=== PATIENT | male | born 1990 | race Caucasian/White ===

== ENCOUNTER 2021-03-21 08:54 | Emergency (ER) | payer BC, SELFPAY ==
[2021-03-21] VITALS (14 sets, daily range): BP systolic 117–139; BP diastolic 57–71; PULSE 66–95; RESP 18–25; TEMP 36.7–36.9; O2SAT 95–100
--- NOTE | 2021-03-21 09:00 | RT.EKG_ITS ---
APPROVED REPORT Exam: Resting ECG Reason for Exam: chest pain Patient Location: E HR:89 bpm ECG Measurements Heart Rate 89 AXIS MN 141 P 53 QRSd 86 QRS 53 QT 343 T 42 QTc 418 Conclusion Sinus rhythm...normal P axis, V-rate 60- 99 ST elev, probable normal early repol pattern...ST elevation, age<55. Sinus. Normal axis. Peaked T waves anterolateral leads. Early Repol. No STEMI. No old EKG to compare. I have reviewed and interpreted ECG and agree with software generated interpretation.
--- NOTE | 2021-03-21 09:30 | DI.RAD_ITS ---
Exam(s) XR CHEST 2V PA LATERAL EXAM: XR CHEST 2V PA LATERAL CLINICAL HISTORY: lleft chest pain TECHNIQUE: 2D digital imaging was performed of the chest. Two images were obtained. PA and lateral views were obtained. COMPARISON: No exams were available for comparison FINDINGS: MEDIASTINUM: Normal. HEART: Normal. PULMONARY VASCULATURE: Normal. LUNGS: There is an opacity seen in the anterior aspect of the lung on the lateral view suspicious for lingular infiltrate. There is also blunting posteriorly of the left costophrenic angle suggesting a small left pleural effusion. PLEURAL SPACE: No right pleural effusion or pneumothorax. BONE:Within normal limits for the patient's age. OTHER FINDINGS:Normal. IMPRESSION: 1. Left lingular infiltrate. 2. Small left pleural effusion. DATA REPOSITORY: RADIATION DOSE DELIVERED:
[2021-03-21] MEDS: Ketorolac 15 MG/ML VIAL IVP (09:57)
[2021-03-21] MEDS: Orphenadrine 60 MG/2 ML VIAL IVP (09:57)
[2021-03-21 09:59] LABS: Abs Immature Grans 0.03 10^3/uL (0.0-0.06); Absolute Basophil Count 0.03 10^3/uL (0.0-0.2); Absolute Lymphocyte Count 1.38 10^3/uL (1.2-3.4); Absolute Monocyte Count 0.76 10^3/uL (0.1-0.8); Absolute Neutrophil Count 6.98 10^3/uL (1.2-6.7); Basophils % 0.3; Eosinophils % 2.1; HCT 44.2 % (40.0-50.0); HGB 14.4 g/dL (13.5-17.5); Immature Grans % 0.3; Lymphocytes % 14.7; MCH 30.3 pg (27.0-33.0); MCHC 32.6 % (32.0-36.0); MCV 92.9 fL (80-95); Monocytes % 8.1; Neutrophils % 74.5; Nucleated RBC 0 %; Platelet Count 203 10^3/uL (130-400); RBC 4.76 10^6/uL (4.36-5.78); RDW 11.3 % (11.8-14.1); RDW-SD 38.6 fL; WBC 9.38 10^3/uL (4.4-10.8)
--- NOTE | 2021-03-21 10:23 | DI.VRAD_ITS ---
PROCEDURE INFORMATION: Exam: XR Chest Exam date and time: 03/21/2021 9:38 AM Age: 30 years old Clinical indication: Pain; Left-sided TECHNIQUE: Imaging protocol: XR of the chest. Views: 2 views. COMPARISON: No relevant images were readily available for comparison purposes. FINDINGS: Lungs: Clear lungs. Pleural spaces: No sizable pleural effusion. No pneumothorax. Heart/Mediastinum: Cardiomediastinal silhouette is within normal limits. Bones/joints: No acute displaced fracture or dislocation. IMPRESSION: No acute cardiopulmonary process. Dictated and Authenticated by: Bharath Gentile MD. Ordering:RAJNI Jones MD
[2021-03-21 10:33] LABS: ALT 29 U/L (16-63); AST 15 U/L (15-37); Albumin 3.8 g/dL (3.4-5.0); Alkaline Phosphatase 63 U/L (46-116); Anion Gap 7.4 mmol/L (3-11); BUN 15 mg/dL (7-18); Bilirubin, Total 1.1 mg/dL (0.2-1.0); CO2 28.6 mmol/L (21.0-32.0); CREATININE 1.1 mg/dL (0.70-1.30); Calcium 9.2 mg/dL (8.5-10.1); Chloride 102 mmol/L (98-107); Glucose 84 mg/dL (74-106); Potassium 4.1 mmol/L (3.5-5.1); Sodium 138 mmol/L (136-145); Total Protein 7.5 g/dL (6.4-8.2); Troponin I < 50 ng/L (<or=60)
[2021-03-21 10:45] LABS: D-Dimer 803 ng/mlFEU (<500)
--- NOTE | 2021-03-21 11:00 | DI.CT_ITS ---
Exam(s) CT CHEST PE CTA EXAM: CT CHEST PE CTA CLINICAL HISTORY: elevated dimer and left chest pain. TECHNIQUE: Imaging Protocol: Axial CT angiography was performed with multi-slice acquisition and mu lti-planar and/or 3D reconstructions. CONTRAST MATERIAL: Intravenous: Omnipaque 350 Contrast volume:100 mL COMPARISON: CR,XR XR CHEST 2V PA LATERAL from 03/21/2021 FINDINGS: The examination is limited due to patient motion artifact. Tracheobronchial tree: Patent where visualized. Pulmonary parenchyma: There are infiltrates seen in the left lingula and the left lower lobe. No arc hitectural distortion. Pulmonary Arteries: No evidence of filling defect to suggest pulmonary emboli. Evaluation is somewhat compromised, particularly peripherally secondary to the patient motion. Mediastinum and Gita: No dominant adenopathy or fluid collection. The esophagus is unremarkable. Visualized thyroid gland: Unremarkable. Pleura: No pneumothorax. Small left pleural effusion. Heart: The heart is not dilated. No coronary artery calcifications are seen. No pericardial effusion. Aorta: Thoracic aorta non-dilated. No evidence of dissection. Upper abdomen: Unremarkable. Soft tissues: Unremarkable. Bones: Within normal limits for the patient's age. IMPRESSION: 1. No evidence of pulmonary embolism, thoracic aortic dissection or aneurysm. 2. Small left pleural effusion and subjacent atelectasis. 3. Infiltrate in the left lingula suspicious for pneumonia. RADIATION DOSE DELIVERED: 410.15mGy.cm Total DLP DATA REPOSITORY: All CT scans at this facility are submitted to the National Radiology Data Registry (NRDR) Dose Index Registry (DIR) with the [employer] ([employer]). RADIATION OPTIMIZATION: All CT scans at this facility use at least one of these dose optimization te chniques: automated exposure control; mA and/or kV adjustment per patient size (includes targeted exa ms where dose is matched to clinical indication); or iterative reconstruction.
[2021-03-21] MEDS: Lidocaine 5% Patch 1 PATCH TP (11:09)
[2021-03-21] MEDS: Normal Saline Flush 10 ML SYR IVP ×2 (11:48→12:27)
[2021-03-21] MEDS: Omnipaque 350 MG/ML 100 ML BTL IJ (11:48)
--- NOTE | 2021-03-21 12:00 | DI.VRAD_ITS ---
PROCEDURE INFORMATION: Exam: CTA Chest With Contrast Exam date and time: 03/21/2021 11:03 AM Age: 30 years old Clinical indication: Left-sided and other: Elevated dimer and left chest pain TECHNIQUE: Imaging protocol: Computed tomographic angiography of the chest with contrast. 3D rendering (Not supervised by radiologist): MIP and/or 3D reconstructed images were created by the technologist. Contrast material: OMNIPAQUE 350; Contrast volume: 100 ml; Contrast route: INTRAVENOUS (IV); COMPARISON: CR XR CHEST 2V PA LATERAL 03/21/2021 10:18 AM FINDINGS: Pulmonary arteries: Normal caliber main pulmonary artery. No convincing evidence of pulmonary embolus. Aorta: Normal caliber aorta. Thyroid: Unremarkable visualized thyroid. Lungs: Limited evaluation portions of the lung parenchyma secondary to motion. Minimal atelectasis right lower lobe. Consolidative like opacity seen at the left lingula. Image 48 series 4. Pleural spaces: No pneumothorax. Small left-sided pleural effusion with associated left lower lobe atelectasis. Heart: Heart normal size. Lymph nodes: No concerning or suspicous lymphadenopathy. Bones/joints: No acute fracture. Soft tissues: Unremarkable superficial soft tissues. Other findings: Clear central airways. IMPRESSION: 1. Findings concerning for left lingular pneumonia. 2. Small left-sided pleural effusion. Dictated and Authenticated by: Bharath Gentile MD. Ordering:RAJNI Jones MD
--- NOTE | 2021-03-21 12:38 | ED.GENADUL_ITS ---
Discharge Plan Disposition Patient Disposition: HOME Condition: Stable Discharge Details Clinical Impression: Pneumonia Primary Care Provider: Unknown,Unknown ED Provider: Karen Logan Home Meds and New Rx's Prescriptions: New doxycycline hyclate 100 mg tablet 100 mg PO BID Qty: 14 RF: 0 orphenadrine citrate 100 mg tablet extended release 100 mg PO BID Qty: 10 RF: 0 Discharge Instructions Instructions: Pneumonia (ED) Additional Instructions: Isolate until your COVID test returned, you may check your portal or we will call you regarding your results Ibuprofen and Tylenol for pain control as prescribed on bottle Take the antibiotic as prescribed Yogurt daily while on antibiotic Lidoderm patch as needed for discomfort PCP recheck in 48 hours Return earlier with shortness of breath, worsening pain, or should any new concerns arise Discharge Data Discharge Date/Time-TO BE ENTERED AT DEPARTURE: 03/21/21 12:[address] with evidence of lingular infiltrate, likely cause of pain, will place on doxycycline for 7 days, no hypoxia, tachypnea, tachycardia, and patient really appears well per radiology interpretation my review He prescribed Lidoderm patches for pain control, ibuprofen, Tylenol Repeat assessment with PCP recommended in 24 to 48 hours Send out COVID ordered Return precautions discussed and patient expressed understanding, discharged home in stable condition with stable vital Medical Records Medical records reviewed: Yes I reviewed the patient's medical records. Lab Data Lab results reviewed: Yes I reviewed the patient's lab results. HPI General Mode of arrival: ambulatory . Date/Time Provider Initiated Documentation: 03/21/21 09:16 . Limitations to Documentation: no limitations . Information obtained by: patient . HPI Narrative: This 36-year-old male presents with left chest pain which started on Tuesday of this week. Patient had a dumbbell work that would left on Tuesday and was wondering if this may have precipitated the pain. He states that the pain has been worsening since onset. He has mild cough but denies any shortness of breath. Denies any fever or chills. Denies any known sick contacts. He denies any calf pain or swelling. He denies prior history of similar symptoms in the past. He denies any hemoptysis. Patient denies any dizziness or weakness. He took some Tylenol prior to arrival without alleviation of pain. Related Data Home Medications Medication Instructions Recorded Confirmed doxycycline hyclate 100 mg PO BID #14 tab 03/21/21 orphenadrine citrate 100 mg PO BID #10 tab 03/21/21 Previous Rx's Medication Instructions Recorded doxycycline hyclate 100 mg PO BID #14 tab 03/21/21 orphenadrine citrate 100 mg PO BID #10 tab 03/21/21 Allergies Allergy/AdvReac Type Severity Reaction Status Date / Time dogs,cats Allergy Uncoded 03/21/21 09:10 seasonal Allergy Uncoded 03/21/21 09:10 General Stated Complaint: Chest/Rib BRUNILDA: 2 Review of Systems All systems reviewed & are unremarkable except as noted in HPI and below PFSH All Active Problems (Updated 03/21/21 @ 12:43 by ONESIMO Garner) Pneumonia (Acute) Social History Smoking/Tobacco Use Status: Never Smoking risk assessment performed?: Yes Substance use type: does not use Exam Const General: cooperative, comfortable and no acute distress Eyes Pupils: PERRL Chest Other: Reproducible left chest wall tenderness below approximately 1 inch nipple line on left, no rashes or lesions, no crepitus Resp Effort & Inspection: normal respiratory effort Auscultation: clear to auscultation bilaterally Cardio Rate: regular rate Rhythm: regular rhythm Other: Distal pulses intact GI Other: No CVA tenderness, no abdominal tenderness Skin General skin exam: no rashes or lesions noted Neuro General: patient alert and patient oriented x3 Extrem Other: Distal pulse intact, no calf sign or tenderness Course Vital Signs Vital signs: Vital Signs Temperature 36.9 C 03/21/21 09:06 Pulse 95 H 03/21/21 09:06 Respiratory Rate 25 H 03/21/21 09:06 Blood Pressure 136/69 03/21/21 09:06 Pulse Oximetry 97 03/21/21 09:06 Temperature 36.9 C 03/21/21 09:06 Temperature Source Skin 03/21/21 09:06 Pulse 66 03/21/21 10:19 Pulse 66 03/21/21 10:20 Respiratory Rate 21 03/21/21 10:20 Respiratory Effort Non-Labored 03/21/21 09:22 Respiratory Depth Normal 03/21/21 09:22 Respiratory Pattern Normal 03/21/21 09:22 Blood Pressure 126/71 03/21/21 10:19 Blood Pressure Mean 83 03/21/21 10:19 Blood Pressure Position Sitting 03/21/21 09:06 Pulse Oximetry 98 03/21/21 10:20 Oxygen Delivery Method Room Air 03/21/21 09:06 Oxygen Flow Rate 0 03/21/21 09:06 Pain Level 8 03/21/21 09:57 Lab/Test Results Lab/Test Results: Laboratory Tests Range/Units 03/21/21 03/21/21 03/21/21 09:50 09:50 09:50 WBC (4.4-10.8) 10^3/uL 9.38 RBC (4.36-5.78) 10^6/uL 4.76 Hgb (13.5-17.5) g/dL 14.4 Hct (40.0-50.0) % 44.2 MCV (80-95) fL 92.9 MCH (27.0-33.0) pg 30.3 MCHC (32.0-36.0) % 32.6 RDW (11.8-14.1) % 11.3 L Plt Count (130-400) 10^3/uL 203 MPV (8.0-11.0) fL 11.0 Immature Gran % 0.3 Neutrophils % 74.5 Lymphocytes % 14.7 Monocytes % 8.1 Eosinophils % 2.1 Basophils % 0.3 Nucleated RBC % % 0 Absolute Neutrophils (1.2-6.7) 10^3/uL 6.98 H Absolute Lymphocytes (1.2-3.4) 10^3/uL 1.38 Absolute Monocytes (0.1-0.8) 10^3/uL 0.76 Absolute Eosinophils (0.0-0.7) 10^3/uL 0.20 Absolute Basophils (0.0-0.2) 10^3/uL 0.03 D-Dimer Cancelled Sodium Potassium Chloride Carbon Dioxide Anion Gap BUN Creatinine Estimated GFR/1.73 m2 Glucose Calcium Total Bilirubin AST ALT Alkaline Phosphatase Troponin I Cancelled Total Protein Albumin Range/Units 03/21/21 03/21/21 03/21/21 09:50 10:06 10:06 WBC (4.4-10.8) 10^3/uL RBC (4.36-5.78) 10^6/uL Hgb (13.5-17.5) g/dL Hct (40.0-50.0) % MCV (80-95) fL MCH (27.0-33.0) pg MCHC (32.0-36.0) % RDW (11.8-14.1) % Plt Count (130-400) 10^3/uL MPV (8.0-11.0) fL Immature Gran % Neutrophils % Lymphocytes % Monocytes % Eosinophils % Basophils % Nucleated RBC % % Absolute Neutrophils (1.2-6.7) 10^3/uL Absolute Lymphocytes (1.2-3.4) 10^3/uL Absolute Monocytes (0.1-0.8) 10^3/uL Absolute Eosinophils (0.0-0.7) 10^3/uL Absolute Basophils (0.0-0.2) 10^3/uL D-Dimer 803 H Sodium Cancelled 138 Potassium Cancelled 4.1 Chloride Cancelled 102 Carbon Dioxide Cancelled 28.6 Anion Gap Cancelled 7.4 BUN Cancelled 15 Creatinine Cancelled 1.1 Estimated GFR/1.73 m2 Cancelled >= 60.00 Glucose Cancelled 84 Calcium Cancelled 9.2 Total Bilirubin Cancelled 1.1 H AST Cancelled 15 ALT Cancelled 29 Alkaline Phosphatase Cancelled 63 Troponin I < 50 Total Protein Cancelled 7.5 Albumin Cancelled 3.8
[2021-03-22 15:25] LABS: COVID-19 RT-PCR UVMMC Result Negative (Negative)
== END 2021-03-21 12:45 | disposition home or self-care (01) ==
PROVIDERS: Emergency Provider Physician Assistant
DX: J18.9 Pneumonia, unspecified organism (principal); R07.9 Chest pain, unspecified; R79.89 Other specified abnormal findings of blood chemistry
CPT/HCPCS: 36415; 71275; 80053; 93005; 96374; 96375; 99285; J2360; U0003; 71046; 84484; 85025; 85379; 93010; 99284; J1885; J3490